=== PATIENT | male | born 1990 | race African-American/Black ===

== ENCOUNTER 2017-10-06 13:58 | Emergency (ER) | payer OTHER ==
[~2017-10-06] VITALS: Ht 185.4 cm; Wt 91.0 kg
[2017-10-06 14:00] VITALS: BP 124/70
[2017-10-06] MEDS ORDERED: KETOROLAC 60MG/2ML VIAL IM ONE (15:45)
== END 2017-10-06 16:21 | disposition home or self-care (01) ==
LOC: ER 15:13
DX: L02.211 Cutaneous abscess of abdominal wall (principal); I10 Essential (primary) hypertension
CPT/HCPCS: 96372; 99283; J1885

== ENCOUNTER 2017-10-07 08:15 | Emergency (ER) | payer OTHER ==
[~2017-10-07] VITALS: Ht 185.4 cm; Wt 95.0 kg
[2017-10-07 08:40] VITALS: BP 159/93
== END 2017-10-07 09:25 | disposition home or self-care (01) ==
LOC: ER 08:19
DX: L02.211 Cutaneous abscess of abdominal wall (principal); I10 Essential (primary) hypertension; J45.909 Unspecified asthma, uncomplicated; F12.90 Cannabis use, unspecified, uncomplicated
CPT/HCPCS: 99282

== ENCOUNTER 2017-10-12 00:38 | Emergency (ER) | payer OTHER ==
[~2017-10-12] VITALS: Ht 188 cm; Wt 96.0 kg
[2017-10-12 00:41] VITALS: BP 109/57
== END 2017-10-12 01:39 | disposition left against medical advice (07) ==
LOC: ER 01:29
DX: L02.221 Furuncle of abdominal wall (principal); Z53.21 Procedure and treatment not carried out due to patient leaving prior to being seen by health care provider

== ENCOUNTER 2018-03-12 09:39 | Emergency (ER) | payer OTHER ==
[~2018-03-12] VITALS: Ht 188 cm; Wt 96.0 kg
[2018-03-12 10:27] VITALS: BP 121/77
[2018-03-12] MEDS ORDERED: AZITHROMYCIN 500 MG TABLET PO ONE (11:45)
[2018-03-12] MEDS ORDERED: CEFTRIAXONE SODIUM 250 MG/VIAL IM ONE (11:45)
[2018-03-12] MEDS ORDERED: LIDOCAINE HCL 1% 20ML VIAL (Pyxis) INJ INFIL ONE (11:45)
[2018-03-12] MEDS ORDERED: LIDOCAINE HCL/PF 1% 10 MG/ML 5ML VIAL ONE (12:03)
[2018-03-12 12:19] LABS: CLARITY URINE CLEAR (CLEAR); COLOR URINE YELLOW (YELLOW); KETONES URINE NEGATIVE (NEGATIVE); LEUKOCYTE ESTERASE URINE NEGATIVE (NEGATIVE); NITRITE URINE NEGATIVE (NEGATIVE); OCCULT BLOOD URINE NEGATIVE (NEGATIVE); PH URINE 7.5 (4.5-8.0); PROTEIN URINE NEGATIVE (NEGATIVE); SPECIFIC GRAVITY URINE 1.019 (1.005-1.030); UROBILINOGEN URINE 0.2 E.U./dL (0.2-1.0)
[2018-03-18 04:11] LABS: CHLAMYDIA TRACHOMATIS NAA Negative (Negative); NEISSERIA GONORRHOEAE NAA Negative (Negative)
== END 2018-03-12 12:51 | disposition home or self-care (01) ==
LOC: ER 12:09
DX: B35.6 Tinea cruris (principal); I10 Essential (primary) hypertension; J45.909 Unspecified asthma, uncomplicated
CPT/HCPCS: 81003; 87491; 87591; 96372; 99284; J0696; J3490

== ENCOUNTER 2019-04-17 06:25 | Emergency (ER) | payer OTHER ==
[~2019-04-17] VITALS: Ht 185.4 cm; Wt 104.0 kg
[2019-04-17 07:51] VITALS: BP 135/85
== END 2019-04-17 07:52 | disposition home or self-care (01) ==
LOC: ER 06:25
DX: A63.8 Other specified predominantly sexually transmitted diseases (principal); J45.909 Unspecified asthma, uncomplicated; F12.10 Cannabis abuse, uncomplicated
CPT/HCPCS: 99281

== ENCOUNTER 2023-03-17 10:15 | Emergency (ER) | payer OTHER ==
[~2023-03-17] VITALS: Ht 185.4 cm; Wt 105.0 kg
[2023-03-17] MEDS ORDERED: CARB15DR63 LEFT EAR (12:01)
[2023-03-17 12:17] VITALS: BP 129/82
== END 2023-03-17 12:17 ==
LOC: ER 10:15
DX: H61.22 Impacted cerumen, left ear (principal)
CPT/HCPCS: 76870; 93976; 99284